=== PATIENT | female | born 1945 | race Caucasian/White ===

== ENCOUNTER 2016-10-25 13:12 | Observation (INO) | payer MEDICARE, OTHER ==
[~2016-10-25 13:12] MED LIST: AMIT25; CALTCHW4 PO; DENO60P SC; FLUT1INH; LORA1TAB PO; METO50CR PO; OMEP40CA2; POTA1TAB17; TIOT18I; VITA400C36; ZETI10TA5 PO
[2016-10-25 13:17] VITALS: BP 105/71; PULSE 86; RESP 14; TEMP 97.8; O2SAT 93
--- NOTE | 2016-10-25 13:25 | PD ---
Physical Exam Time Seen by Provider: 13:22 Narrative 71 y/o female reports that on 11/03 a feeding tube is scheduled to be put in. Her home health speech therapist recommended that she come here now because she seems to be getting dehydrated. C/O fatigue. Recent esophageal dilation bc of esophageal narrowing, not able to orally hydrate well. Vital signs reviewed. Seen at triage desk. Awaiting bed placement. Data Data Last Documented VS Vital Signs Date Time Temp Pulse Resp B/P Pulse Ox O2 Delivery O2 Flow Rate FiO2 10/25/16 13:17 97.8 86 14 105/71 93 MDM Medical Record Reviewed: Yes Supervised Visit with JOSEFA: No Reyes Wolff Oct 25, 2016 13:25
[2016-10-25] MEDS ORDERED: SODIUM CHLORID 0.9% 500 ML INJ 500 ML IV ONE (14:00)
--- NOTE | 2016-10-25 14:05 | PD ---
HPI Chief Complaint: GI Complaint Time Seen by Provider: 13:37 Travel History International Travel<30 days: No Contact w/Intl Traveler<30days: No Traveled to known affect area: No History of Present Illness HPI This is a 71-year-old female who presents to the emergency department with fatigue, generalized weakness and difficulty swallowing. Patient has a history of chronic dysphagia. She was just hospitalized at [facility] and required multiple esophageal dilations. She met with a GI doctor as an outpatient who told her she would be a candidate for a G-tube and the plan was to put a G-tube in on November 03. Her speech therapist came to her house today and was concerned about how dehydrated she looked and was concerned that she was having more trouble swallowing. She thought she should come to the hospital would be evaluated. Her family reports that she's been very fatigued, she lost 5 pounds immediately upon discharge from the hospital. The plan had been to try to increase her oral intake but she's been unable to since being discharged. Her symptoms of been constant, worsening and severe. PFSH Past Medical History Narrative Medical lung cancer htn hld COPD left lung removal chronic dysphagia Anxiety: Yes Heart Rhythm Problems: Yes Cancer: Yes (LUNG) High Cholesterol: Yes Chemotherapy: Yes (1993) Diminished Hearing: No Hypertension: Yes Radiation Therapy: Yes Tetanus Vaccination: Unknown Influenza Vaccination: Yes Past Surgical History Appendectomy: Yes Body Medical Devices: NERVE STIMULATOR WIRES (MRI OK) Hysterectomy: Yes Thoracic Surgery: Yes (LEFT LUNG REMOVAL) Other Surgery: Yes (VOCAL CORD SURGERY) Social History Alcohol Use: No Tobacco Use: No Substance Use: No Allergies-Medications (Allergen,Severity, Reaction): Coded Allergies: Codeine (Verified Allergy, Mild, Headache, 10/25/16) Reported Meds & Prescriptions Reported Meds & Active Scripts Active Reported Amitriptyline (Amitriptyline HCl) 25 Mg Tab 25 Mg PO HS Caltrate 600+D Chew (Calcium Carbonate-Vitamin D Chew) 600-400 Mg-Unit Chew 1 Tab PO DAILY Prolia Inj (Denosumab) 60 Mg/Ml Inj 60 Mg SQ Q180D Zetia (Ezetimibe) 10 Mg Tab 10 Mg PO DAILY Breo Ellipta Inh (Fluticasone/Vilanterol) 100-25 Mcg/Act Inh 1 Puff INH DAILY Use daily at the same time. Lorazepam 1 Mg Tab 1 Mg PO TID Metoprolol Tartrate 25 Mg Tab 25 Mg PO BID Spiriva Handihaler (Tiotropium Inh) 18 Mcg Cap 18 Mcg INH DAILY 1 capsule = 18 mcg Benicar (Olmesartan) 40 Mg Tab 40 Mg PO DAILY Wellbutrin Xl 24 HR (Bupropion HCl) 150 Mg Tab 150 Mg PO DAILY Prednisone 10 Mg Tab 10 Mg PO DAILY Nystatin Liq 100,000 unit/ml Susp 5 Ml SWISH-SPIT QID Review of Systems Except as stated in HPI: all other systems reviewed are Neg Physical Exam Narrative GENERAL:frail, cachectic SKIN: dry with skin tenting HEAD: Atraumatic. Normocephalic. EYES: Pupils equal and round. No injection or drainage. ENT: Dry mucous membranes NECK: Trachea midline. CARDIOVASCULAR: Regular rate and rhythm. No murmur appreciated. RESPIRATORY: Clear to auscultation. Breath sounds equal bilaterally. GASTROINTESTINAL: Abdomen soft, non-tender, nondistended. MUSCULOSKELETAL: No obvious deformities. NEUROLOGICAL: Awake and alert. No obvious cranial nerve deficits. Moving all extremities. PSYCHIATRIC: Appropriate mood and affect; insight and judgment normal. Data Data Last Documented VS Vital Signs Date Time Temp Pulse Resp B/P Pulse Ox O2 Delivery O2 Flow Rate FiO2 10/25/16 13:17 97.8 86 14 105/71 93 Orders Complete Blood Count With Diff (10/25/16 13:47) Comprehensive Metabolic Panel (10/25/16 13:47) ^ Insert Iv (10/25/16 13:47) Sodium Chlorid 0.9% 500 Ml Inj (Ns 500 M (10/25/16 14:00) Urinalysis - C+S If Indicated (10/25/16 15:17) Cath For Specimen (10/25/16 15:17) Consult Gastroenterology (10/25/16 ) Admit Order (Ed Use Only) (10/25/16 15:38) Labs Laboratory Tests Test 10/25/16 14:00 White Blood Count 13.7 TH/MM3 Red Blood Count 4.64 MIL/MM3 Hemoglobin 14.0 GM/DL Hematocrit 43.1 % Mean Corpuscular Volume 93.0 FL Mean Corpuscular Hemoglobin 30.3 PG Mean Corpuscular Hemoglobin 32.6 % Concent Red Cell Distribution Width 13.8 % Platelet Count 227 TH/MM3 Mean Platelet Volume 8.5 FL Neutrophils (%) (Auto) 90.0 % Lymphocytes (%) (Auto) 3.7 % Monocytes (%) (Auto) 5.8 % Eosinophils (%) (Auto) 0.3 % Basophils (%) (Auto) 0.2 % Neutrophils # (Auto) 12.3 TH/MM3 Lymphocytes # (Auto) 0.5 TH/MM3 Monocytes # (Auto) 0.8 TH/MM3 Eosinophils # (Auto) 0.0 TH/MM3 Basophils # (Auto) 0.0 TH/MM3 CBC Comment DIFF FINAL Differential Comment Sodium Level 141 MEQ/L Potassium Level 5.5 MEQ/L Chloride Level 103 MEQ/L Carbon Dioxide Level 34.4 MEQ/L Anion Gap 4 MEQ/L Blood Urea Nitrogen 22 MG/DL Creatinine 0.62 MG/DL Estimat Glomerular Filtration 94 ML/MIN Rate Random Glucose 121 MG/DL Calcium Level 9.6 MG/DL Total Bilirubin 1.0 MG/DL Aspartate Amino Transf 36 U/L (AST/SGOT) Alanine Aminotransferase 46 U/L (ALT/SGPT) Alkaline Phosphatase 67 U/L Total Protein 7.0 GM/DL Albumin 3.1 GM/DL [facility] Medical Decision Making Medical Screen Exam Complete: Yes Emergency Medical Condition: Yes Interpretation(s) Leukocytosis 90% neutrophils Mild hyperkalemia secondary to homolysis Urinalysis with no infection Differential Diagnosis Dehydration, esophageal stricture, vocal cord dysfunction, electrolyte abnormality Narrative Course This is a 71-year-old female who presents the emergency department with increasing generalized weakness. She appears dehydrated on exam. She is placed in a monitor and an IV was established. Labs are reassuring. I think patient requires observation for IV hydration given her clinical appearance and GI consultation. I spoke to Dr. Gibson who was on-call and agrees with plan. Diagnosis Primary Impression: Dehydration Admitting Information Admitting Physician Requests: Observation Sally Thompson MD Oct 25, 2016 14:05
[2016-10-25 14:26] LABS: AUTOMATED NEUTROPHIL # 12.3 TH/MM3 (1.8-7.7); BASOPHIL % 0.2 % (0.0-2.0); EOSINOPHIL % 0.3 % (0.0-4.0); HEMATOCRIT 43.1 % (35.0-46.0); HEMO FLAGS DIFF FINAL; LYMPH % 3.7 % (9.0-44.0); LYMPHOCYTE # 0.5 TH/MM3 (1.0-4.8); MEAN CORPUSCULAR HEMOGLOBIN 30.3 PG (27.0-34.0); MEAN CORPUSCULAR HGB CONC 32.6 % (32.0-36.0); MONO % 5.8 % (0.0-8.0); PLATELET COUNT 227 TH/MM3 (150-450); RED BLOOD COUNT 4.64 MIL/MM3 (4.00-5.30); RED CELL DISTRIBUTION WIDTH 13.8 % (11.6-17.2); WHITE BLOOD COUNT 13.7 TH/MM3 (4.0-11.0)
[2016-10-25 14:46] LABS: ALKALINE PHOSPHATASE 67 U/L (45-117)
[2016-10-25 14:48] LABS: ALT (GPT) 46 U/L (10-53); ANION GAP 4 MEQ/L (5-15); AST (GOT) 36 U/L (15-37); BICARBONATE 34.4 MEQ/L (21.0-32.0); BLOOD UREA NITROGEN 22 MG/DL (7-18); CHLORIDE 103 MEQ/L (98-107); GLOMERULAR FILTRATION RATE 94 ML/MIN (>89); SODIUM (NA) 141 MEQ/L (136-145)
[2016-10-25 14:49] LABS: POTASSIUM 5.5 MEQ/L (3.5-5.1)
[2016-10-25] MEDS ORDERED: NYST1000 SWISH-SPIT (16:28)
[2016-10-25] MEDS ORDERED: PRED10 PO (16:32)
[2016-10-25] MEDS ORDERED: BENI40TA3 PO (16:32)
[2016-10-25] MEDS ORDERED: FLUT1INH INH (16:32)
[2016-10-25] MEDS ORDERED: BUPR150XL PO (16:32)
[2016-10-25] MEDS ORDERED: SPIRCAP INH (16:32)
[2016-10-25] MEDS ORDERED: METO25TA3 PO (16:32)
[2016-10-25] MEDS ORDERED: LORA1TAB12 PO (16:32)
[2016-10-25] MEDS ORDERED: AMIT25TA9 PO (16:35)
[2016-10-25] MEDS ORDERED: CALTCHW5 PO (16:35)
[2016-10-25] MEDS ORDERED: DENO60P SQ (16:35)
[2016-10-25] MEDS ORDERED: ZETI10TA5 PO (16:35)
[2016-10-25 16:42] LABS: BLOOD, URINE NEG (NEG); GLUCOSE,URINE NEG (NEG); KETONE, URINE NEG (NEG); MUCUS URINE FEW /lpf (OCC); NITRITE,URINE NEG (NEG); URINE COLOR YELLOW (YELLW/STRAW)
[2016-10-25 16:44] LABS: COMMENT (UR) CATH-CULT NOT IND; CULTURE IF INDICATED CATH CULTURE NOT IND
[2016-10-25] MEDS ORDERED: ONDANSETRON HCL 4 MG/2 ML VIAL IVP PRN (16:45)
[2016-10-25] MEDS ORDERED: SODIUM CHLORIDE 0.9% FLUSH 10 ML FLUSH IV FLUSH PRN (16:45)
[2016-10-25] MEDS ORDERED: MAGNESIUM HYDROXIDE SUSP 30 ML CUP PO PRN (16:45)
[2016-10-25] MEDS ORDERED: NALOXONE HCL 0.4 MG/ML AMP IV PRN (16:45)
--- NOTE | 2016-10-25 16:46 | PD.CONS ---
HPI History of Present Illness This is a 71 year old [lady] presented to ER today after being advised by PCP and speech therapist at home to come in for worsening dehydration and dysphagia. Pt has hx lung removal for lung ca 20 y ago. Exact etiology unclear , family suspects damage to vocal chords. Pt also has hx surgery to vocal cords to improve speaking voice "geraldine." She has had 3 esophagea dilations in "many years." The dysphagia has worsened in the last couple years and her appetite has declined. Per daughter she stopped eating r/t difficulty swallowing. She has difficulty with solids and liquids. She also chokes when she tries to eat and was recently hospitalized in September for aspiration PNA. She has had speech therapy do swallow eval at home and was told she needs liquids nectar thick and possibly need honey thickened, and pureed foods. She was scheduled by Dr Dangelo to have PEG insertion at [place] in one week. She has lost 34 lbs in the last 3 months and 5 lbs in the last week. No blood thinners, no pacemaker. (Terri Pitts) PFSH Past Medical History hx lung ca HTN hyperlipidemia tachycardia Past Surgical History back fusion removal left lung hysterectomy appendectomy vocal cord surgery (Terri Pitts) Coded Allergies: Codeine (Verified Allergy, Mild, Headache, 10/25/16) Family History [facility] CVA lung ca - sister Social History rare ETOH former smoker - quit 20 y ago no drugs (Terri Pitts) Review of Systems Constitutional: DENIES: Fever Eyes: DENIES: Blurred vision Ears, nose, mouth, throat: DENIES: Hearing loss Respiratory: COMPLAINS OF: Cough, Hemoptysis, Sputum production Cardiovascular: DENIES: Chest pain Gastrointestinal: COMPLAINS OF: Constipation, Vomiting, DENIES: Abdominal pain , Black stools, Bloody stools, Diarrhea, Nausea, Hematemesis Genitourinary: DENIES: Hematuria Musculoskeletal: DENIES: Muscle aches Integumentary: DENIES: Jaundice Hematologic/lymphatic: DENIES: Bruising Neurologic: COMPLAINS OF: Localized weakness Psychiatric: DENIES: Confusion ROS regurgitates food (Terri Pitts) GI Exam Vitals I&O Vital Signs Date Time Temp Pulse Resp B/P Pulse Ox O2 Delivery O2 Flow Rate FiO2 10/25/16 13:17 97.8 86 14 105/71 93 Laboratory Test 10/25/16 14:00 White Blood Count 13.7 TH/MM3 Red Blood Count 4.64 MIL/MM3 Hemoglobin 14.0 GM/DL Hematocrit 43.1 % Mean Corpuscular Volume 93.0 FL Mean Corpuscular Hemoglobin 30.3 PG Mean Corpuscular Hemoglobin 32.6 % Concent Red Cell Distribution Width 13.8 % Platelet Count 227 TH/MM3 Mean Platelet Volume 8.5 FL Neutrophils (%) (Auto) 90.0 % Lymphocytes (%) (Auto) 3.7 % Monocytes (%) (Auto) 5.8 % Eosinophils (%) (Auto) 0.3 % Basophils (%) (Auto) 0.2 % Neutrophils # (Auto) 12.3 TH/MM3 Lymphocytes # (Auto) 0.5 TH/MM3 Monocytes # (Auto) 0.8 TH/MM3 Eosinophils # (Auto) 0.0 TH/MM3 Basophils # (Auto) 0.0 TH/MM3 CBC Comment DIFF FINAL Differential Comment Sodium Level 141 MEQ/L Potassium Level 5.5 MEQ/L Chloride Level 103 MEQ/L Carbon Dioxide Level 34.4 MEQ/L Anion Gap 4 MEQ/L Blood Urea Nitrogen 22 MG/DL Creatinine 0.62 MG/DL Estimat Glomerular Filtration 94 ML/MIN Rate Random Glucose 121 MG/DL Calcium Level 9.6 MG/DL Total Bilirubin 1.0 MG/DL Aspartate Amino Transf 36 U/L (AST/SGOT) Alanine Aminotransferase 46 U/L (ALT/SGPT) Alkaline Phosphatase 67 U/L Total Protein 7.0 GM/DL Albumin 3.1 GM/DL Physical Examination GENERAL: thin HEENT: EOMI; atraumatic; no jaundice. CHEST: rhonchi CARDIAC: RRR ABDOMEN: Soft, nondistended, nontender; no hepatosplenomegaly; bowel sounds hypoactive EXTREMITIES: No clubbing, cyanosis, or edema. SKIN: Normal; no rash; no jaundice. MACHINIST AUTOMOTIVE: No focal deficits; alert and oriented times three. (Terri Pitts ACCOUNT UNDERWRITER) Assessment and Plan Plan ASSESSMENT - dysphagia, weight loss- pt has hx lung ca, vocal cord surgery. Has lost > 30lbs in 3 months and 5 in the last week. worsening dysphagia, scheduled for PEG placement 11/03 but has been having insufficient PO intake and dehydration and referred here by PCP and home health speech therapist, who also recommended nectar and possibly honey thickened liquids. PLAN - EGD/PEG placement tomorrow - obtain consents - honey thickened liquids, puree diet - NPO after midnight - nutrition consult for TF This pt seen by myself and Dr Gibson and this note is written on his behalf ( Terri Pitts) Physician Comments Plan as above, risk, benefits and possible complications discussed and agreed to proceed in AM. (Mihir Gibson MD) Terri Pitts Oct 25, 2016 16:46 Mihir Gibson MD Oct 25, 2016 22:18
[2016-10-25 17:54] VITALS: BP 132/67; PULSE 81; RESP 19; O2SAT 94
--- NOTE | 2016-10-25 18:45 | HHI.HP ---
HPI Service [facility] Hospitalists Primary Care Physician Brandy Newsome MD Admission Diagnosis dehydration, dysphagia Diagnoses: Chief Complaint: Weight loss Difficulty with swallowing Generalized weakness Fatigue Travel History International Travel<30 Days: No Contact w/Intl Traveler <30 Da: No Traveled to Known Affected Are: No History of Present Illness Written by RADHA Lind acting as scribe for Dr. Villarreal on 10/25/16 at 18:24. This is a 71-year-old female with a past medical history significant for previous lung cancer status post left lung resection 20 years ago, hypertension , dyslipidemia, COPD and chronic dysphagia who presented to [place] ED after being advised by her PCP and speech therapist at home to come in to the hospital for worsening dehydration and dysphagia. Patient's previous history of vocal cord surgery. She has has had multiple esophageal dilations. Patient states that her dysphagia has been worsening over many years. She's also noticed a decline in her appetite. She's had an overall weight loss 157 pounds down to 102. However, she has noticed the weight loss has become more rapid and she is now losing a pound a day. She is having increasing difficulty with swallowing both solids and liquids. She frequently chokes when she tries to eat. On 10/09/16, she was admitted at [facility] for aspiration pneumonia and completed a 14 day course of antibiotic therapy with Cefuroxime 250mg BID as well as tapering dose of prednisone the last dose of which she completes today. She was recently evaluated by a GI doctor as an outpatient and was scheduled for a PEG tube insertion on November [address] Gill. However, due to increasing fatigue, weakness and concern for dehydration her therapist felt she was not safe to wait and to come into the hospital. Review of Systems Except as stated in HPI: all other systems reviewed are Neg Past Family Social History Past Medical History Hypertension Lung ca 20 years ago status post left lung resection Dyslipidemia, statin intolerant COPD Anxiety Chronic dysphagia Past Surgical History L5 to S1 back fusion with bone growth stimulator implantation Left lung resection 20yrs ago Vocal cord surgery Hysterectomy Appendectomy Right lung surgery Reported Medications Amitriptyline (Amitriptyline HCl) 25 Mg Tab 25 Mg PO HS Caltrate 600+D Chew (Calcium Carbonate-Vitamin D Chew) 600-400 Mg-Unit Chew 1 Tab PO DAILY Prolia Inj (Denosumab) 60 Mg/Ml Inj 60 Mg SQ Q180D Zetia (Ezetimibe) 10 Mg Tab 10 Mg PO DAILY Breo Ellipta Inh (Fluticasone/Vilanterol) 100-25 Mcg/Act Inh 1 Puff INH DAILY Use daily at the same time. Lorazepam 1 Mg Tab 1 Mg PO TID Metoprolol Tartrate 25 Mg Tab 25 Mg PO BID Spiriva Handihaler (Tiotropium Inh) 18 Mcg Cap 18 Mcg INH DAILY 1 capsule = 18 mcg Benicar (Olmesartan) 40 Mg Tab 40 Mg PO DAILY Wellbutrin Xl 24 HR (Bupropion HCl) 150 Mg Tab 150 Mg PO DAILY Prednisone 10 Mg Tab 10 Mg PO DAILY Nystatin Liq 100,000 unit/ml Susp 5 Ml SWISH-SPIT QID Allergies: Coded Allergies: Codeine (Verified Allergy, Mild, Headache, 10/25/16) Active Ordered Medications Current Medications Medications (Trade) Dose Ordered Sig/[place] Route Start Time Stop Time Status Last Admin (NS Flush) 2 ml UNSCH PRN IV FLUSH 10/25/16 16:45 (NS Flush) 2 ml BID IV FLUSH 10/25/16 21:00 (Tylenol) 650 mg Q4H PRN PO 10/25/16 16:45 (Zofran Inj) 4 mg Q6H PRN IVP 10/25/16 16:45 (Narcan Inj) 0.4 mg UNSCH PRN IV 10/25/16 16:45 (Milk Of Magnesia Liq) 30 ml Q12H PRN PO 10/25/16 16:45 Family History Mother, age 86, renal failure Father, age 51, heart attack Sister, age 78, lung cancer She has a brother who is 82 and healthy Social History Previous tobacco use, quit 20 years ago. Denies any alcohol consumption. Denies illicit drug use. Patient is lives with her . She is the primary caregiver of her who suffered a recent stroke. She has 2 daughters one of which was recently diagnosed with breast cancer. Physical Exam Vital Signs Vital Signs Date Time Temp Pulse Resp B/P Pulse Ox O2 Delivery O2 Flow Rate FiO2 10/25/16 17:54 81 19 132/67 94 Room Air 10/25/16 13:17 97.8 86 14 105/71 93 Physical Exam GENERAL: This is a thin, frail cachectic appearing female, in no apparent distress. SKIN: No rashes, ecchymoses or lesions. Cool and dry. HEAD: Atraumatic. Normocephalic. No temporal or scalp tenderness. EYES: Pupils equal round and reactive. Extraocular motions intact. No scleral icterus. No injection or drainage. ENT: Nose without bleeding, purulent drainage or septal hematoma. Throat without erythema, tonsillar hypertrophy or exudate. Uvula midline. Airway patent. NECK: Trachea midline. No lymphadenopathy. Supple, nontender, no meningeal signs. CARDIOVASCULAR: Regular rate and rhythm without murmurs, gallops, or rubs. RESPIRATORY: Clear to auscultation right lung luna. Absent breath sounds on the left. No wheezes, rales, or rhonchi. GASTROINTESTINAL: Abdomen soft, non-tender, nondistended. No hepato-splenomegaly , or palpable masses. No guarding. MUSCULOSKELETAL: Extremities without clubbing, cyanosis, or edema. No joint tenderness, effusion, or edema noted. No calf tenderness. NEUROLOGICAL: Awake and alert. Able to move all extremities. No focal neurologic findings appreciated. Hypophonic speech. Laboratory Laboratory Tests Test 10/25/16 10/25/16 14:00 16:25 White Blood Count 13.7 Red Blood Count 4.64 Hemoglobin 14.0 Hematocrit 43.1 Mean Corpuscular Volume 93.0 Mean Corpuscular Hemoglobin 30.3 Mean Corpuscular Hemoglobin 32.6 Concent Red Cell Distribution Width 13.8 Platelet Count 227 Mean Platelet Volume 8.5 Neutrophils (%) (Auto) 90.0 Lymphocytes (%) (Auto) 3.7 Monocytes (%) (Auto) 5.8 Eosinophils (%) (Auto) 0.3 Basophils (%) (Auto) 0.2 Neutrophils # (Auto) 12.3 Lymphocytes # (Auto) 0.5 Monocytes # (Auto) 0.8 Eosinophils # (Auto) 0.0 Basophils # (Auto) 0.0 CBC Comment DIFF FINAL Differential Comment Sodium Level 141 Potassium Level 5.5 Chloride Level 103 Carbon Dioxide Level 34.4 Anion Gap 4 Blood Urea Nitrogen 22 Creatinine 0.62 Estimat Glomerular Filtration 94 Rate Random Glucose 121 Calcium Level 9.6 Total Bilirubin 1.0 Aspartate Amino Transf 36 (AST/SGOT) Alanine Aminotransferase 46 (ALT/SGPT) Alkaline Phosphatase 67 Total Protein 7.0 Albumin 3.1 Urine Color YELLOW Urine Turbidity CLEAR Urine pH 7.0 Urine Specific [place] 1.022 Urine Protein TRACE Urine Glucose (UA) NEG Urine Ketones NEG Urine Occult Blood NEG Urine Nitrite NEG Urine Bilirubin NEG Urine Urobilinogen LESS THAN 2.0 Urine Leukocyte Esterase TRACE Urine RBC 2 Urine WBC 1 Urine Mucus FEW Microscopic Urinalysis Comment CATH-CULT NOT IND Result Diagram: 10/25/16 1400 10/25/16 1400 Assessment and Plan Assessment and Plan 71-year-old female with a past medical history significant for previous lung cancer status post left lung resection 20 years ago, hypertension, dyslipidemia , COPD and chronic dysphagia who presents to [facility] ED with complaints of fatigue, generalized weakness, progressive weight loss and difficulty with swallowing. Acute on chronic dysphagia Recent hospitalization for aspiration pneumonia Progressive weight loss Failure to thrive Dehydration GI consult requested and patient has already been evaluated - very much appreciate their assistance. Patient for EGD/PEG placement tomorrow Previously evaluated by speech therapy - Honey thickened liquids, pured diet Nothing by mouth after midnight Consult nutrition for tube feeding following PEG placement Hypertension BP well-controlled at present Resume home antihypertensive Monitor BP and adjust treatment as indicated Leukocytosis Possibly reactive Patient is afebrile AM labs to monitor trend Lung caner 20 years ago status post left lung resection COPD Supplemental oxygen as needed Resume home bronchodilators Plan for home walk test prior to discharge to assess need for home oxygen Maintain O2 sats above 92% Duonebs prn Thrush Nystatin swish and swallow Dyslipidemia, statin intolerant Continue Zetia DVT prophylaxis SCD/CHICO cho Patient is DNR This note was transcribed by leonel Barillas. I, Dr. Peng Villarreal personally performed the history, physical exam, and medical decision making; and confirmed the accuracy of the information in the transcribed note. Authenticated by Dr. Peng Villarreal on 10/25/16 at 18:49. Suzanne Barillas Oct 25, 2016 18:44 Peng Villarreal MD Oct 25, 2016 18:49
[2016-10-25 19:15] VITALS: BP 109/69; PULSE 75; RESP 20; TEMP 97.9; O2SAT 95
[2016-10-25] MEDS: ACETAMINOPHEN 325 MG TAB PO PRN (19:43)
[2016-10-25] MEDS: SODIUM CHLORIDE 0.9% FLUSH 10 ML FLUSH IV FLUSH SCH (19:44)
[2016-10-25] MEDS ORDERED: RESP: ALBUTEROL 2.5 MG/IPRATROPIUM 0.5 MG NEB (PRN) NEB (20:45)
[2016-10-25] MEDS ORDERED: ENALAPRILAT 1.25 MG/ML VIAL IV PUSH PRN (20:45)
[2016-10-25] MEDS: AMITRIPTYLINE HCL 25 MG TAB PO SCH (22:10)
[2016-10-25] MEDS: METOPROLOL TARTRATE 25 MG TAB PO SCH (22:10)
[2016-10-25] MEDS: NYSTATIN SUSP 500,000 U/5 ML CUP SWISH-SWAL SCH (22:10)
[2016-10-26] VITALS (8 sets, daily range): BP systolic 113–145; BP diastolic 55–79; PULSE 65–83; RESP 16–20; TEMP 95.8–98.7; O2SAT 92–98
[2016-10-26 05:12] LABS: AUTOMATED NEUTROPHIL # 7.6 TH/MM3 (1.8-7.7); BASOPHIL # 0.1 TH/MM3 (0-0.2); BASOPHIL % 0.9 % (0.0-2.0); EOSINOPHIL # 0.1 TH/MM3 (0-0.4); EOSINOPHIL % 0.6 % (0.0-4.0); HEMATOCRIT 36.6 % (35.0-46.0); HEMO FLAGS DIFF FINAL; LYMPH % 11.9 % (9.0-44.0); LYMPHOCYTE # 1.2 TH/MM3 (1.0-4.8); MEAN CELL VOLUME 91.7 FL (80.0-100.0); MEAN CORPUSCULAR HEMOGLOBIN 30.2 PG (27.0-34.0); MONO % 11.7 % (0.0-8.0); NEUT % 74.9 % (16.0-70.0); PLATELET COUNT 174 TH/MM3 (150-450); RED BLOOD COUNT 3.99 MIL/MM3 (4.00-5.30); RED CELL DISTRIBUTION WIDTH 13.5 % (11.6-17.2); WHITE BLOOD COUNT 10.1 TH/MM3 (4.0-11.0)
[2016-10-26 05:50] LABS: ALKALINE PHOSPHATASE 55 U/L (45-117); ALT (GPT) 32 U/L (10-53); ANION GAP 6 MEQ/L (5-15); AST (GOT) 16 U/L (15-37); BICARBONATE 31.8 MEQ/L (21.0-32.0); BLOOD UREA NITROGEN 16 MG/DL (7-18); CHLORIDE 105 MEQ/L (98-107); GLOMERULAR FILTRATION RATE 177 ML/MIN (>89); POTASSIUM 3.6 MEQ/L (3.5-5.1); SODIUM (NA) 143 MEQ/L (136-145)
[2016-10-26] MEDS ORDERED: KANGAROO JOEY P1 MIS (08:58)
[2016-10-26] MEDS ORDERED: predniSONE 10 MG TAB PO SCH (09:00)
[2016-10-26] MEDS ORDERED: EZETIMIBE 10 MG TAB PO SCH (09:00)
[2016-10-26] MEDS ORDERED: buPROPion HCL 150 MG EXTENDED RELEASE TAB PO SCH (09:00)
[2016-10-26] MEDS ORDERED: LOSARTAN 50 MG TAB PO SCH (09:00)
--- NOTE | 2016-10-26 09:05 | HHI.FF ---
Face to Face Verification Diagnosis: (1) Malnutrition (2) Dysphagia (3) History of lung cancer (4) COPD (chronic obstructive pulmonary disease) (5) HTN (hypertension) (6) HLD (hyperlipidemia) Physical Therapy Order: Evaluate and Treat, Improve ambulation, Strength and gait training Speech Therapy Order: To Improve: Swallowing Home Health Nursing Order: Medical education Signs/symptoms of disease process Nursing assessment with vital signs Instructions: Assist with tube feedings. I have seen patient Paige Sharp on 10/26/16. My clinical findings support the need for the requested home health care services because: Ltd mobility - disease progression Deconditioned w/ increased weakness Limited ability to care for self I certify that my clinical findings support that this patient is homebound because: Unsteady gait/balance Unsafe to leave home unassisted Unable to use public transportation Leia Amado PA-C Oct 26, 2016 9:05 am
--- NOTE | 2016-10-26 09:50 | HHI.PR ---
Subjective Remarks Follow up for dysphagia, malnutrition. The patient reports continued difficulty swallowing with nonproductive cough. She states she chokes even on her saliva. She is going for EGD with PEG placement today. The patient's daughter is at bedside. Daughter reports the patient has only been getting max 1300calories at home but on most days it's around 900 calories. She states the patient's stomach "fills up quick" and she has to eat very small meals. The patient already has HHC at home and would like to continue this at discharge. Objective Vitals Vital Signs Date Time Temp Pulse Resp B/P Pulse Ox O2 Delivery O2 Flow Rate FiO2 10/26/16 08:45 97.8 76 18 131/79 93 10/26/16 04:09 98.5 66 18 143/65 92 10/26/16 00:55 98.0 65 16 113/69 94 10/25/16 19:15 97.9 75 20 109/69 95 10/25/16 17:54 81 19 132/67 94 Room Air 10/25/16 13:17 97.8 86 14 105/71 93 Result Diagram: 10/26/16 0409 10/26/16 0402 Objective Remarks GENERAL: Thin cachectic pleasant elderly female patient in [facility]. SKIN: Warm and dry. No rash. HEENT: Normocephalic. Atraumatic. Bitemporal wasting noted. Pupils equal and round. Mucous membranes slightly dry. NECK: Supple. Trachea midline. CARDIOVASCULAR: Regular rate and rhythm. S1, S2 noted. 2/6 systolic murmur noted. RESPIRATORY: No accessory muscle use. Clear to auscultation. Breath sounds equal bilaterally. GASTROINTESTINAL: Abdomen soft, non-tender, nondistended. Normoactive bowel sounds x4. MUSCULOSKELETAL: No obvious deformities. Extremities without clubbing, cyanosis , or edema. NEUROLOGICAL: Awake and alert. No obvious cranial nerve deficits. Motor grossly within normal limits. Normal speech. PSYCHIATRIC: Appropriate mood and affect; insight and judgment normal. Procedures 10/26/16 - going for EGD with PEG placement today Medications and IVs Current Medications Medications (Trade) Dose Ordered Sig/Cayetano Route Start Time Stop Time Status Last Admin (NS Flush) 2 ml UNSCH PRN IV FLUSH 10/25/16 16:45 (NS Flush) 2 ml BID IV FLUSH 10/25/16 21:00 10/25/16 19:44 (Tylenol) 650 mg Q4H PRN PO 10/25/16 16:45 10/25/16 19:43 (Zofran Inj) 4 mg Q6H PRN IVP 10/25/16 16:45 (Narcan Inj) 0.4 mg UNSCH PRN IV 10/25/16 16:45 (Milk Of Magnesia Liq) 30 ml Q12H PRN PO 10/25/16 16:45 (Mycostatin Liq) 5 ml QID SWISH-SWAL 10/25/16 21:00 10/25/16 22:10 (Vasotec Inj) 1.25 mg Q6H PRN IV PUSH 10/25/16 20:45 (Elavil) 25 mg HS PO 10/25/16 21:00 10/25/16 22:10 (Zetia) 10 mg DAILY PO 10/26/16 09:00 (Breo Ellipta 100-25 Inh) 1 puff DAILY INH 10/26/16 09:00 (Ativan) 1 mg TID PO 10/26/16 09:00 (Lopressor) 25 mg BID PO 10/25/16 21:00 10/25/16 22:10 (Deltasone) 10 mg DAILY PO 10/26/16 09:00 (Spiriva Inh) 18 mcg DAILY INH 10/26/16 09:00 (Cozaar) 100 mg DAILY PO 10/26/16 09:00 (Wellbutrin Sr) 150 mg DAILY PO 10/26/16 09:00 A/P Problem List: (1) Malnutrition ICD Code: E46 Status: Acute (2) Dysphagia ICD Code: R13.10 Status: Acute (3) Dehydration ICD Code: E86.0 Status: Acute Assessment and Plan 71-year-old female with a past medical history significant for previous lung cancer status post left lung resection 20 years ago, hypertension, dyslipidemia , COPD and chronic dysphagia who presents to [facility] ED with complaints of fatigue, generalized weakness, progressive weight loss and difficulty with swallowing. Acute on chronic dysphagia, Weight loss, Cachexia, Failure to thrive, Dehydration, Severe Protein Calorie Malnutrition -GI consulted, plan for EGD/PEG placement today 10/26 -Previously evaluated by at [facility], recommended Honey thickened liquids , pured diet -Keep NPO for now. -Give IVF while NPO -Consult nutrition for tube feeding recommendations following PEG placement -Case management consulted to arrange HHC and tube feeds at home Hypertension: BP well-controlled at present -Resume home antihypertensives with ARB, metoprolol -Monitor BP and adjust treatment as indicated Leukocytosis: Suspect reactive, patient is afebrile -Given IVF -repeat CBC with WBC 10.1, resolved. Lung cancer 20 years ago status post left lung resection, COPD -Continue Supplemental oxygen as needed -Resume home bronchodilators -Plan for home walk test prior to discharge to assess need for home oxygen -Maintain O2 sats above 92% -Duonebs prn Thrush-Continue Nystatin swish and swallow Dyslipidemia, statin intolerant-Continue Zetia DVT prophylaxis: SCD/CHICO cho Patient is undecided on her code status, she plans to discuss with her 2 daughters. She has a living will that reportedly states "no extraordinary measures" however patient believes she would agree to CPR/ACLS but not intubation. Discussed will leave as full code for now until she has discussed with family, patient and daughter agree. -1010hrs: patient's other family members arrived, the patient and family have decided the patient would like to be DNR, will change code status in EMR Leia Amado PA-C Oct 26, 2016 09:50
[2016-10-26] MEDS ORDERED: OXYGENDME NAS.CANULA (10:35)
[2016-10-26] MEDS ORDERED: ceFAZolin INJ 1,000 MG VIAL IV ONE (11:04)
[2016-10-26] MEDS ORDERED: PROPOFOL 200 MG/20 ML AMP IV PUSH ONE (11:19)
--- NOTE | 2016-10-26 11:32 | GIPROC ---
[facility] [address] [facility]. [facility], [address] EGD WITH PEG PROCEDURE REPORT EXAM DATE: 10/26/2016 PATIENT NAME: Paige Sharp MR#: [id number] BIRTHDATE: 1945 ATTENDING: Mihir Gibson MD ORDER #: [id number] MANAGER ENGAGEMENT: Indu Guy and Andrew Drummond STATUS: inpatient INDICATIONS: The patient is a 71 yr old female here for an EGD with PEG due to placement of PEG PROCEDURE PERFORMED: EGD with PEG placement MEDICATIONS: Per Anesthesia. TOPICAL ANESTHETIC: none CONSENT: The patient understands the risks and benefits of the procedure and understands that these risks include, but are not limited to: sedation, allergic reaction, infection, perforation and/or bleeding. Alternative means of evaluation and treatment include, among others: physical exam, x-rays, and/or surgical intervention. The patient elects to proceed with this endoscopic procedure. medical equipment was checked for proper function. Hand hygiene and appropriate measures for infection prevention was taken. After the risks, benefits and alternatives of the procedure were thoroughly explained, Informed consent was verified, confirmed and timeout was successfully executed by the treatment team. The patient was anesthetized with topical anesthesia and the Pentax [id number] endoscope was introduced through the mouth and advanced to the second portion of the duodenum. The instrument was slowly withdrawn as the mucosa was fully examined. The upper, middle, and distal third of the esophagus were carefully inspected and no abnormalities were noted. The z-line was well seen at the GEJ. The endoscope was pushed into the fundus which was normal including a retroflexed view. The antrum, first and second part of the duodenum were unremarkable. The stomach was then inflated with air, and by a combination of transillumination and manual palpation, the site for the gastrostomy tube placement was selected and marked on the anterior abdominal wall. The skin of the anterior abdomen was surgically prepped and draped with sterile towels. Utilizing strict sterile technique, the selected site was then anesthetized with 1% xylocaine by injection into the skin and subcutaneous tissue. A 1 cm incision was made through the skin and subcutaneous tissue, and the needle/cannula assembly was then passed through the abdominal wall and through the anterior wall of the stomach, maintaining visualization with the endoscope. A snare device previously placed through the instrument channel was then opened and placed around the cannula, the needle was removed, and the insertion wire was passed through the cannula and into the stomach lumen. The snare was then loosened from the cannula, and repositioned to snare the insertion wire. The snare was then pulled up to the endoscope distal tip, and the scope was then withdrawn bringing with it the snare and insertion wire. The insertion wire was then released from the snare, and then loop-attached to the Ross 20 Fr gastrostomy tube. Using the "pull technique", the G-tube was then pulled into place by traction on the insertion wire at the abdominal wall end. The G-tube insertion site was then cleansed once again, and the external bolster was placed over the tube to secure it to the abdominal wall. A sterile dressing was then applied, and the procedure terminated. no abnormalities The gastroscope was then slowly withdrawn and removed. ADVERSE EVENT: There were no complications. IMPRESSIONS: 1. The upper, middle, and distal third of the esophagus were carefully inspected and no abnormalities were noted. The z-line was well seen at the GEJ. The endoscope was pushed into the fundus which was normal including a retroflexed view. The antrum, first and second part of the duodenum were unremarkable. 2. Possible extrinsic compression noted at the GE junction but no mucosal invasion. RECOMMENDATIONS: PEG recomendations: 1- NPO for 6 hours except for meds 2- Flush PEG tube every 6 hours with water and after each PEG feeding 3- May resume regular diet in the morning 4- May use Ensure or Boost etc. for PEG tube feeding REPEAT EXAM: procedure as needed Mihir Gibson MD eSigned: Mihir Gibson MD 10/26/2016 11:32 AM cc: PATIENT NAME: Paige Sharp MR#: [id number]
[2016-10-26] MEDS ORDERED: MORPHINE SULFATE 4 MG/ML INJ IV ONE (12:15)
[2016-10-26] MEDS: D5-1/2 NS + KCL 20 MEQ INJ 1,000 ML IV SCH ×2 (13:39→22:28)
[2016-10-26] MEDS: TIOTROPIUM BROMIDE 18 MCG INH INH SCH (14:00)
[2016-10-26] MEDS: FLUTICASONE 100 MCG/VILANTEROL 25 MCG INHALER INH SCH (14:00)
[2016-10-26] MEDS: LORazepam 1 MG TAB PO SCH ×3 (14:01→18:52)
[2016-10-26] MEDS: buPROPion HCL 150 MG SUSTAINED RELEASE TAB PO SCH (14:04)
[2016-10-26] MEDS: NYSTATIN SUSP 500,000 U/5 ML CUP SWISH-SWAL SCH ×4 (14:05→22:26)
[2016-10-26] MEDS: METOPROLOL TARTRATE 25 MG TAB PO SCH ×2 (14:10→22:15)
[2016-10-26] MEDS: SODIUM CHLORIDE 0.9% FLUSH 10 ML FLUSH IV FLUSH SCH ×2 (14:11→21:00)
[2016-10-26] MEDS: ACETAMINOPHEN 325 MG TAB PO PRN (16:14)
--- NOTE | 2016-10-26 21:22 | EKG ---
Date Performed: 10/26/2016 Time Performed: 09:07:35 PTAGE: 71 years EKG: Sinus rhythm NORMAL ECG NO PREVIOUS TRACING DOCTOR: Melvi Disla Interpretating Date/Time 10/26/2016 21:15:57
[2016-10-26] MEDS: AMITRIPTYLINE HCL 25 MG TAB PO SCH (22:26)
[2016-10-27 04:10] VITALS: BP 113/54; RESP 17; TEMP 96.5; O2SAT 96
[2016-10-27] MEDS ORDERED: MORPHINE SULFATE 4 MG/ML INJ IV PUSH ONE (06:15)
[2016-10-27 07:25] VITALS: O2SAT 98
[2016-10-27 08:03] VITALS: BP 111/58; PULSE 90; RESP 15; TEMP 98.1; O2SAT 98
[2016-10-27] MEDS ORDERED: ACETAMINOPHEN/HYDROcodone 325 MG/5 MG TAB PEG PRN (08:45)
--- NOTE | 2016-10-27 08:54 | HHI.PR ---
Subjective Remarks Follow-up for dysphagia and malnutrition. The patient complains of pain with PEG tube insertion. She states that she is afraid to move because of the pain from the PEG tube site. She did receive morphine and states that it helped a lot. Otherwise she is been tolerating tube feeding. She denies any nausea or vomiting. Last BM 2 days ago. She would like to go home today if the pain is better controlled. She declines rehabilitation placement, states her daughter is visiting for a while and she has [facility] at home to assist her. Objective Vitals Vital Signs Date Time Temp Pulse Resp B/P Pulse Ox O2 Delivery O2 Flow Rate FiO2 10/27/16 08:03 98.1 90 15 111/58 98 10/27/16 07:25 98 Nasal Cannula 2.00 10/27/16 07:00 16 10/27/16 04:10 96.5 17 113/54 96 10/26/16 23:50 98.5 77 16 113/55 96 10/26/16 20:22 97 Nasal Cannula 2.00 10/26/16 19:59 95.8 80 16 113/58 97 10/26/16 15:13 97.9 83 20 126/59 97 10/26/16 12:30 92 17 141/67 100 10/26/16 12:00 94 18 129/66 100 10/26/16 11:40 94 18 125/62 95 10/26/16 11:25 97.6 94 18 116/63 93 10/26/16 10:32 98.7 83 18 145/70 98 I/O 10/26/16 10/26/16 10/26/16 10/27/16 10/27/16 10/27/16 07:00 15:00 23:00 07:00 15:00 23:00 Intake Total 368 ml Balance 368 ml Intake IV Total 168 ml Other 200 ml # Voids 1 1 Result Diagram: 10/26/16 0409 10/26/16 0402 Objective Remarks GENERAL: Well-developed fair-nourished. In no acute distress. SKIN: Warm and dry. No lesions noted. HEENT: Normocephalic. Pupils equal and round. Mucous membranes pink and moist. White patches of the angles of the mouth. CARDIOVASCULAR: Regular rate and rhythm. No murmur appreciated. RESPIRATORY: No accessory muscle use. Clear to auscultation. Breath sounds equal bilaterally. GASTROINTESTINAL: Abdomen soft, non-tender, nondistended. Bowel sounds x4. PEG tube in place in the epigastrium with minimal surrounding inflammation and no drainage. MUSCULOSKELETAL: No obvious deformities. No clubbing or cyanosis. No edema. NEUROLOGICAL: Awake and alert. No focal neurological deficits. Moves upper and lower extremities spontaneously. Normal speech. PSYCHIATRIC: Appropriate mood and affect; insight and judgment normal. Procedures 10/26/16 - going for EGD with PEG placement today A/P Problem List: (1) Malnutrition ICD Code: E46 Status: Acute (2) Dysphagia ICD Code: R13.10 Status: Acute (3) Dehydration ICD Code: E86.0 Status: Acute Assessment and Plan 71-year-old female with a past medical history significant for previous lung cancer status post left lung resection 20 years ago, hypertension, dyslipidemia , COPD and chronic dysphagia who presents to [facility] ED with complaints of fatigue, generalized weakness, progressive weight loss and difficulty with swallowing. Acute on chronic dysphagia, Weight loss, Cachexia, Failure to thrive, Dehydration, Severe Protein Calorie Malnutrition -GI consulted, performed EGD/PEG placement 10/26 -Previously evaluated [facility], recommended Honey thickened liquids , pured diet -Started on tube feedings, increase to goal. Resume previous diet per recommendations. -IVF -Appreciate dietitian consult and recommendations -Case management consulted to arrange HHC and tube feeds at home -Pain control with a bowel regimen for PEG tube site pain Hypertension: Controlled. -Continue home antihypertensives with ARB, metoprolol -Monitor BP and adjust treatment as indicated Leukocytosis: Suspect reactive, patient is afebrile -Given IVF, repeat CBC with WBC 10.1, resolved. Lung cancer 20 years ago status post left lung resection, COPD -Continue Supplemental oxygen as needed -Continue home bronchodilators -Performed home oxygen walk test, will need home O2, case management consulted -Maintain O2 sats above 92% -Duonebs prn Thrush-Continue Nystatin swish and swallow Dyslipidemia, statin intolerant-Continue Zetia DVT prophylaxis: SCD/CHICO hose Discharge Planning Likely discharge home with HHC today if tolerating tube feeding. Jd Alfredo Oct 27, 2016 08:54
[2016-10-27] MEDS: NYSTATIN SUSP 500,000 U/5 ML CUP SWISH-SWAL SCH (09:00)
[2016-10-27] MEDS ORDERED: POLYETHYLENE GLYCOL 17 GM PKG PEG ONE (09:00)
[2016-10-27] MEDS: LORazepam 1 MG TAB PEG SCH ×2 (09:30→12:10)
[2016-10-27] MEDS ORDERED: predniSONE 10 MG TAB PEG SCH (09:30)
[2016-10-27] MEDS ORDERED: EZETIMIBE 10 MG TAB PEG SCH (09:30)
[2016-10-27] MEDS ORDERED: METOPROLOL TARTRATE 25 MG TAB PEG SCH (09:30)
[2016-10-27] MEDS ORDERED: LOSARTAN 50 MG TAB PEG SCH (09:30)
[2016-10-27] MEDS: TIOTROPIUM BROMIDE 18 MCG INH INH SCH (09:31)
[2016-10-27] MEDS: FLUTICASONE 100 MCG/VILANTEROL 25 MCG INHALER INH SCH (09:31)
[2016-10-27] MEDS: buPROPion HCL 150 MG SUSTAINED RELEASE TAB PO SCH (09:31)
[2016-10-27] MEDS: D5-1/2 NS + KCL 20 MEQ INJ 1,000 ML IV SCH (09:32)
[2016-10-27] MEDS: SODIUM CHLORIDE 0.9% FLUSH 10 ML FLUSH IV FLUSH SCH (09:32)
[2016-10-27 10:55] LABS: BICARBONATE 35.6 MEQ/L (21.0-32.0); MAGNESIUM 2.1 MG/DL (1.5-2.5); POTASSIUM 3.9 MEQ/L (3.5-5.1)
[2016-10-27 11:41] VITALS: BP 107/53; PULSE 76; RESP 20; TEMP 99; O2SAT 97
--- NOTE | 2016-10-27 12:00 | HHI.GIFU ---
Subjective Remarks Pt resting in bed, about to do bedside swallow eval. She c/o PEG site pain, says it hurts if she moves. No n/v. (Terri iPtts) Objective Vitals I&O Vital Signs Date Time Temp Pulse Resp B/P Pulse Ox O2 Delivery O2 Flow Rate FiO2 10/27/16 11:41 99.0 76 20 107/53 97 10/27/16 10:30 20 10/27/16 08:03 98.1 90 15 111/58 98 10/27/16 07:25 98 Nasal Cannula 2.00 10/27/16 07:15 98 Nasal Cannula 2.00 10/27/16 07:00 16 10/27/16 04:10 96.5 17 113/54 96 10/26/16 23:50 98.5 77 16 113/55 96 10/26/16 20:22 97 Nasal Cannula 2.00 10/26/16 19:59 95.8 80 16 113/58 97 10/26/16 15:13 97.9 83 20 126/59 97 10/26/16 12:30 92 17 141/67 100 10/26/16 12:00 94 18 129/66 100 I/O 10/26/16 10/26/16 10/26/16 10/27/16 10/27/16 10/27/16 07:00 15:00 23:00 07:00 15:00 23:00 Intake Total 368 ml Balance 368 ml Intake IV Total 168 ml Other 200 ml # Voids 1 1 Laboratory Laboratory Tests Test 10/27/16 10:25 Sodium Level 139 Potassium Level 3.9 Chloride Level 99 Carbon Dioxide Level 35.6 Anion Gap 4 Blood Urea Nitrogen 8 Creatinine 0.53 Estimat Glomerular Filtration 113 Rate Random Glucose 188 Calcium Level 8.6 Phosphorus Level 1.7 Magnesium Level 2.1 Physical Exam HEENT: EOMI; normocephalic; atraumatic; no jaundice. CHEST: CTA CARDIAC: RRR, +murmur ABDOMEN: Soft, nondistended, no hepatosplenomegaly; bowel sounds are present in all four quadrants.TTP PEG. PEG site clean, free of redness, swelling, drainage EXTREMITIES: No clubbing, cyanosis, or edema. SKIN: Normal; no rash; no jaundice. CASE MANAGERS: No focal deficits; alert and oriented times three. (Terri Pitts) Assessment and Plan Plan ASSESSMENT - dysphagia, weight loss- pt has hx lung ca, vocal cord surgery. Has lost > 30lbs in 3 months and 5 in the last week. worsening dysphagia, scheduled for PEG placement 11/03 but has been having insufficient PO intake and dehydration and referred here by PCP and home health speech therapist, who also recommended nectar and possibly honey thickened liquids. PLAN - PO diet per speech therapy - TF per nutrition - pain meds PRN PEG site discomfort - okay to d/c home with C if pain under control and continues to tolerate TF This pt seen by myself and Dr Gibson and this note is written on his behalf ( Terri Pitts) Physician Comments Seen and examined, pain improved significantly . stable from GI point of view. ( Mihir Gibson MD) Terri Pitts Oct 27, 2016 12:00 Mihir Gibson MD Oct 27, 2016 14:10
[2016-10-27] MEDS ORDERED: NORC5TAB PO (12:03)
[2016-10-27] MEDS ORDERED: JEVILIQ12 PEG (12:52)
[2016-10-27] MEDS ORDERED: AMITRIPTYLINE HCL 25 MG TAB PEG SCH (21:00)
== END 2016-10-27 14:17 | disposition home or self-care (01) ==
LOC: NEPD 13:12 → NEDA 15:39 → NEPGCP 18:33
PROVIDERS: ADMIT Hospitalist; ATTEND Hospitalist
DX: R13.10 Dysphagia, unspecified (principal); R53.1 Weakness; R62.7 Adult failure to thrive; E86.0 Dehydration; I10 Essential (primary) hypertension; J44.9 Chronic obstructive pulmonary disease, unspecified; E78.5 Hyperlipidemia, unspecified; E43 Unspecified severe protein-calorie malnutrition; F41.9 Anxiety disorder, unspecified; B37.9 Candidiasis, unspecified; E78.00 Pure hypercholesterolemia, unspecified; D72.829 Elevated white blood cell count, unspecified; Z92.21 Personal history of antineoplastic chemotherapy; Z92.3 Personal history of irradiation; Z85.118 Personal history of other malignant neoplasm of bronchus and lung; Z90.2 Acquired absence of lung [part of]; Z88.5 Allergy status to narcotic agent; Z66 Do not resuscitate; Z87.891 Personal history of nicotine dependence
CPT/HCPCS: 43246; 80048; 80053; 81001; 83735; 84100; 84132; 85025; 92610; 93005; 94620; 96361; 96374; 96375; 99285; G0378; G8996; G8997; G8998; J0690; J2270; J3010; J3480; J7040; J7512

== ENCOUNTER 2017-04-29 17:21 | Observation (INO) | payer MEDICARE, OTHER ==
[~2017-04-29] VITALS: Ht 177.8 cm; Wt 52.5 kg
[~2017-04-29 17:21] MED LIST changes: -AMIT25; +AMIT25TA9 PO; +BENI40TA29 PO; +BUPR150XL PO; -CALTCHW4 PO; +CALTCHW5 PO; -DENO60P SC; +DENO60P SQ; +EZET10 PO; -FLUT1INH; +FLUT1INH INH; +JEVILIQ12 PEG; +KANGAROO JOEY P1 MIS; -LORA1TAB PO; +LORA1TAB12 PO; +METO25TA3 PO; -METO50CR PO; +NORC5TAB PO; +NYST1000 SWISH-SPIT; -OMEP40CA2; +OXYGENDME NAS.CANULA; -POTA1TAB17; +PRED10 PO; +SPIRCAP INH; -TIOT18I; -VITA400C36; -ZETI10TA5 PO
[2017-04-29 17:22] VITALS: BP 145/64; PULSE 71; RESP 16; TEMP 98.4; O2SAT 96
[2017-04-29] MEDS ORDERED: CLON1TAB PO (18:46)
[2017-04-29] MEDS ORDERED: FURO20TA PO (18:46)
--- NOTE | 2017-04-29 19:36 | PD ---
HPI . PEG problem Chief Complaint: Air Turning Machine Feeder Problem Time Seen by Provider: 19:02 Travel History International Travel<30 days: No Contact w/Intl Traveler<30days: No Traveled to known affect area: No History of Present Illness HPI This patient presents requesting placement of her PEG tube. The PEG tube has not come out. It has a leak where the feedings go into the tube. PEG tube was placed on October 26 for dysphagia associated with profound malnutrition. In addition, she is complaining with some irritation around the PEG tube. She believes that there has been irritation there for about 2 weeks. She states that she cannot see the site herself but has felt that it was irritated for about 2 weeks. PFSH Past Medical History Blood Disorders: No Anxiety: Yes Depression: No Heart Rhythm Problems: Yes Cancer: Yes (LUNG) Cardiovascular Problems: Yes High Cholesterol: Yes Chemotherapy: Yes (1993) Chest Pain: No Congestive Heart Failure: No Diminished Hearing: No Endocrine: No Genitourinary: No Hypertension: Yes Immune Disorder: No Musculoskeletal: No Neurologic: No Psychiatric: Yes Reproductive: No Respiratory: No Radiation Therapy: Yes Tetanus Vaccination: > 5 Years Influenza Vaccination: Yes Past Surgical History Appendectomy: Yes Body Medical Devices: NERVE STIMULATOR WIRES (MRI OK) Cholecystectomy: Yes Hysterectomy: Yes Thoracic Surgery: Yes (LEFT LUNG REMOVAL) Other Surgery: Yes (VOCAL CORD SURGERY) Social History Alcohol Use: No Tobacco Use: No (quit ) Substance Use: No Allergies-Medications (Allergen,Severity, Reaction): Coded Allergies: codeine (Verified Allergy, Mild, rash, 04/29/17) Reported Meds & Prescriptions Reported Meds & Active Scripts Active Oxygen (O2) Device 2 Liter FLAKITO.CANULA CONTINUOUS Oxygen Concentrator Portable Gaseous 2 L/min via Nasal Canula Continuous For 99 months [facility] Feeding Tube Pump Set 1 Mis Mis 1 Ea .ROUTE DIRECTED Reported Clonazepam 1 Mg Tab 1 Mg PO HS Furosemide 20 Mg Tab 20 Mg PO DAILY Zetia (Ezetimibe) 10 Mg Tab 10 Mg PO DAILY Lorazepam 1 Mg Tab 1 Mg PO TID Metoprolol Tartrate 25 Mg Tab 25 Mg PO BID Spiriva Handihaler (Tiotropium Inh) 18 Mcg Cap 18 Mcg INH DAILY 1 capsule = 18 mcg Wellbutrin Xl 24 HR (Bupropion HCl) 150 Mg Tab 150 Mg PO DAILY Review of Systems Except as stated in HPI: all other systems reviewed are Neg General / Constitutional: No: Fever, Chills Gastrointestinal: Positive: Other (dysphagia requiring PEG tube for nutrition) Skin: Positive Other (irritation at PEG tube insertion site) Physical Exam Narrative GENERAL: Awake and alert and in no acute distress. SKIN: Warm and dry. She has some erythema around the PEG tube insertion site. No foul drainage. HEAD: Normocephalic/atraumatic. EYES: Pupils are equal. Extraocular movements are intact. NECK: Normal range of motion. CARDIOVASCULAR: Regular rate and rhythm. RESPIRATORY: Nonlabored respirations. ABDOMEN: PEG tube is in place. MUSCULOSKELETAL: Atraumatic. NEUROLOGICAL: Nonfocal. PSYCHIATRIC: Appropriate mood and affect. Data Data Last Documented VS Vital Signs Date Time Temp Pulse Resp B/P (MAP) Pulse Ox O2 Delivery O2 Flow Rate FiO2 04/29/17 18:28 16 98 Room Air 04/29/17 17:22 98.4 71 145/64 (91) Orders Orders Lidocaine 2% Jelly (Xylocaine 2% Jelly) (04/29/17 20:00) Lorazepam Inj (Ativan Inj) (04/29/17 20:45) Lidocaine 1% Inj (Xylocaine 1% Inj) (04/29/17 20:45) Admit Order (Ed Use Only) (04/29/17 ) Vital Signs (Adult) Q4H (04/29/17 21:58) Diet Npo (04/29/17 Dinner) Activity Oob With Assistance (04/29/17 21:58) Notify Dr: Other (04/29/17 21:58) Invasive Rad Dept Consult (04/29/17 ) MDM Medical Decision Making Medical Screen Exam Complete: Yes Emergency Medical Condition: Yes Medical Record Reviewed: Yes (patient has a history of dysphagia and a PEG tube for nutrition. PEG was placed on 10/26/16. She also has a history of lung cancer and hypertension.) Differential Diagnosis My differential diagnosis of feeding tube dysfunction includes but is not limited to inadvertent removal of the tube, ruptured balloon, cracked/split tube Narrative Course Patient presents with a split in her G-tube. I have attempted to remove this G-tube without success. I do not know whether the problem is that the balloon is deflated or if the G-tube is adhered to her subcutaneous tissue. Nonetheless, the patient will be admitted overnight and the G-tube will be changed by IR in the morning. Diagnosis Primary Impression: PEG tube malfunction Admitting Information Admitting Physician Requests: Observation Patient Instructions: General Instructions, How to Use and Care for Your PEG Tube (DC) Additional Instructions: Use Desitin around PEG tube. Be sure to keep all gastric juices off the skin. See your doctor for recheck of the area (or your home health nurse) next week. Condition: Stable Ida Prieto MD Apr 29, 2017 19:36
[2017-04-29] MEDS ORDERED: LIDOCAINE 2% JELLY 30 ML TUBE TOPICAL ONE (20:00)
[2017-04-29] MEDS ORDERED: LIDOCAINE HCL 1% 30 ML VIAL INFIL ONE (20:45)
[2017-04-29] MEDS ORDERED: LORazepam 2 MG/ML VIAL IM ONE (20:45)
[2017-04-29] MEDS ORDERED: IOHEXOL 350 MG/ML 50 ML BTL (for RAD DIAG) G-TUBE ONE (22:03)
[2017-04-29] MEDS ORDERED: LORazepam 2 MG/ML VIAL IV PUSH ONE (22:03)
[2017-04-29] MEDS ORDERED: SODIUM CHLORIDE 0.9% FLUSH 10 ML FLUSH IV FLUSH PRN (22:15)
[2017-04-29] MEDS ORDERED: ONDANSETRON HCL 4 MG/2 ML VIAL IVP PRN (22:15)
[2017-04-29] MEDS ORDERED: SENNOSIDES 8.6 MG TAB PO PRN (22:15)
[2017-04-29] MEDS ORDERED: ACETAMINOPHEN 325 MG TAB PO PRN (22:15)
[2017-04-29] MEDS ORDERED: NALOXONE HCL 0.4 MG/ML AMP IV PUSH PRN (22:15)
[2017-04-29] MEDS ORDERED: BISACODYL 10 MG SUPP RECTAL PRN (22:15)
[2017-04-29] MEDS ORDERED: MAGNESIUM HYDROXIDE SUSP 30 ML CUP PO PRN (22:15)
[2017-04-29] MEDS ORDERED: LACTULOSE SYRUP 20 GM/30 ML CUP PO PRN (22:15)
[2017-04-29] MEDS ORDERED: SODIUM CHLOR 0.9% 1000 ML INJ 1,000 ML IV SCH (23:00)
[2017-04-30 00:18] VITALS: BP 165/73; PULSE 66; RESP 18; TEMP 98; O2SAT 96
[2017-04-30 00:26] VITALS: PULSE 67; O2SAT 97
[2017-04-30 02:46] VITALS: BP 137/63
[2017-04-30 04:49] VITALS: BP 147/68; PULSE 70; RESP 18; TEMP 97.5; O2SAT 97
[2017-04-30] MEDS ORDERED: LORazepam 2 MG/ML VIAL IV PUSH ONE (05:00)
--- NOTE | 2017-04-30 05:16 | HHI.HP ---
[facility] Service [facility] Primary Care Physician Brandy Newsome MD Admission Diagnosis PEG tube dysfuntion Diagnoses: Travel History International Travel<30 Days: No Contact w/Intl Traveler <30 Da: No Traveled to Known Affected Are: No History of Present Illness 71-year-old female with past medical history significant for lung cancer, hypertension, hyperlipidemia, COPD and chronic dysphasia with G-tube presents to the emergency department for exchange of her PEG tube. The patient reports that the distal end of the tube that connects to the feeds is cracked resulting in leakage. The patient had the PEG tube placed in October of this year for dysphagia and severe malnutrition. She is currently working with speech therapy and is able to take small bites of pured food and sips of some thickened liquids. She receives all of her medications via G-tube. Exchange was attempted in the emergency department, however the physician was unable to remove the patient's current PEG. She will be seen by interventional radiology for PEG tube exchange later today. Review of Systems Denies fever or chills Denies blurry vision, otorrhea, rhinorrhea Denies sore throat and cough No chest pain, palpitations, shortness of breath No abdominal pain Denies constipation/diarrhea/nausea/vomiting Denies muscle pain/weakness No rashes Past Family Social History Past Medical History Lung cancer, status post left lung resection in 1995. Status post chemotherapy. Patient reports a new spot was found on her right lung and she is going to undergo radiation therapy. Hypertension Hyperlipidemia COPD Anxiety Past Surgical History Left lung resection 1995 Hysterectomy Discectomy Fusion Right hip repair Appendectomy Tonsillectomy Cholecystectomy Reported Medications Reported Meds & Active Scripts Active Oxygen (O2) Device 2 Liter FLAKITO.CANULA CONTINUOUS Oxygen Concentrator Portable Gaseous 2 L/min via Nasal Canula Continuous For 99 months [facility] Feeding Tube Pump Set 1 Mis Mis 1 Ea .ROUTE DIRECTED Reported Clonazepam 1 Mg Tab 1 Mg PO HS Furosemide 20 Mg Tab 20 Mg PO DAILY Zetia (Ezetimibe) 10 Mg Tab 10 Mg PO DAILY Lorazepam 1 Mg Tab 1 Mg PO TID Metoprolol Tartrate 25 Mg Tab 25 Mg PO BID Spiriva Handihaler (Tiotropium Inh) 18 Mcg Cap 18 Mcg INH DAILY 1 capsule = 18 mcg Wellbutrin Xl 24 HR (Bupropion HCl) 150 Mg Tab 150 Mg PO DAILY Allergies: Coded Allergies: codeine (Verified Allergy, Mild, rash, 04/29/17) levofloxacin (Verified Adverse Reaction, Severe, Hallucinations, 04/29/17) Family History Father with NM. Social History Quit tobacco in 1995. Rare alcohol. Physical Exam Vital Signs Vital Signs Date Time Temp Pulse Resp B/P (MAP) Pulse Ox O2 Delivery O2 Flow Rate FiO2 04/30/17 04:49 97.5 70 18 147/68 (94) 97 04/30/17 02:46 137/63 (87) 04/30/17 00:26 67 97 04/30/17 00:18 98.0 66 18 165/73 (103) 96 04/29/17 22:42 04/29/17 18:28 16 98 Room Air 04/29/17 17:22 98.4 71 16 145/64 (91) 96 Room Air Physical Exam GENERAL: Cachectic, female lying in bed SKIN: No rashes, ecchymoses or lesions. Cool and dry. HEAD: Atraumatic. Normocephalic. No temporal or scalp tenderness. EYES: Pupils equal round and reactive. Extraocular motions intact. No scleral icterus. No injection or drainage. ENT: Nose without bleeding, purulent drainage or septal hematoma. Throat without erythema, tonsillar hypertrophy or exudate. Uvula midline. Airway patent. NECK: Trachea midline. No JVD or lymphadenopathy. Supple, nontender, no meningeal signs. CARDIOVASCULAR: Regular rate and rhythm. 4/6 MERLINE. RESPIRATORY: Clear to auscultation. Breath sounds equal bilaterally. No wheezes , rales, or rhonchi. GASTROINTESTINAL: Abdomen soft, non-tender, nondistended. No hepato-splenomegaly , or palpable masses. No guarding. G-tube in place without surrounding erythema or purulent drainage. MUSCULOSKELETAL: Extremities without clubbing, cyanosis, or edema. No joint tenderness, effusion, or edema noted. No calf tenderness. NEUROLOGICAL: Awake and alert. Cranial nerves II through XII intact. Motor and sensory grossly within normal limits. Normal speech. Caprini VTE Risk Assessment Caprini VTE Risk Assessment: Mod/High Risk (score >= 2) Caprini Risk Assessment Model Point Value = 1 Point Value = 2 Point Value = 3 Point Value = 5 Age 41-60 Minor surgery BMI > 25 kg/m2 Swollen legs Varicose veins or History of unexplained or recurrent spontaneous Oral contraceptives or hormone replacement Sepsis (< 1 month) Serious lung disease, including pneumonia (< 1 month) Abnormal pulmonary function Acute myocardial infarction Congestive heart failure (< 1 month) History of inflammatory bowel disease Medical patient at bed rest Age 61-74 Arthroscopic surgery Major open surgery (> 45 min) Laparoscopic surgery (> 45 min) Malignancy Confined to bed (> 72 hours) Immobilizing plaster cast Central venous access Age >= 75 History of VTE Family history of VTE Factor V Leiden Prothrombin [id number] Lupus anticoagulant Anticardiolipin antibodies Elevated serum homocysteine Heparin-induced thrombocytopenia Other congenital or acquired thrombophilia Stroke (< 1 month) Elective arthroplasty Hip, pelvis, or leg fracture Acute spinal cord injury (< 1 month) Prophylaxis Regimen Total Risk Factor Score Risk Level Prophylaxis Regimen 0-1 Low Early ambulation 2 Moderate Order ONE of the following: *Sequential Compression Device (SCD) *Heparin 5000 units SQ BID 3-4 Higher Order ONE of the following medications: *Heparin 5000 units SQ TID *Enoxaparin/Lovenox 40 mg SQ daily (WT < 150 kg, CrCl > 30 mL/min) *Enoxaparin/Lovenox 30 mg SQ daily (WT < 150 kg, CrCl > 10-29 mL/min) *Enoxaparin/Lovenox 30 mg SQ BID (WT < 150 kg, CrCl > 30 mL/min) AND/OR *Sequential Compression Device (SCD) 5 or more Highest Order ONE of the following medications: *Heparin 5000 units SQ TID (Preferred with Epidurals) *Enoxaparin/Lovenox 40 mg SQ daily (WT < 150 kg, CrCl > 30 mL/min) *Enoxaparin/Lovenox 30 mg SQ daily (WT < 150 kg, CrCl > 10-29 mL/min) *Enoxaparin/Lovenox 30 mg SQ BID (WT < 150 kg, CrCl > 30 mL/min) AND *Sequential Compression Device (SCD) Assessment and Plan Assessment and Plan Assessment/plan: 1. PEG tube exchange Patient will go to interventional radiology later this morning for PEG tube exchange NPO IVFs Holding home medications until tube can be utilized 2. Lung cancer Patient follows with oncology as outpatient Is preparing to start radiation therapy 3. Dysphasia/Severe malnutrition Chronic Continue outpatient speech therapy Continue tube feeds once PEG exchanged 4. Hypertension/hyperlipidemia/COPD/anxiety Restart home medications once tube is exchanged FEN NPO NS at 70 cc/hr Case discussed with ER physician at length Ivana Koenig MD Apr 30, 2017 05:16
[2017-04-30 08:09] VITALS: BP 144/65; PULSE 81; RESP 16; TEMP 97.5; O2SAT 95
[2017-04-30] MEDS ORDERED: SODIUM CHLORIDE 0.9% FLUSH 10 ML FLUSH IV FLUSH SCH (09:00)
[2017-04-30] MEDS ORDERED: DOCUSATE SODIUM 50 MG/SENNA 8.6 MG TAB PO SCH (09:00)
--- NOTE | 2017-04-30 13:14 | PD.RAD ---
Post Procedure Progress Note Pre Procedure Diagnosis: (1) Malnutrition Post Procedure Diagnosis: (1) Malnutrition Procedure Date: Apr 30, 2017 Supervising Radiologist: Contreras Tucker Proceduralist/Assist: Rocío Nash, RT(R)(CV), Leia Beverly RT(R) Anesthesia: Local, Analgesia Plan of Activity Patient to Unit: Nursing Unit Patient Condition: Good See PACS Report for procedural detail/treatment Feeding Tube Gastrostomy Exchange Contreras Tucker MD Apr 30, 2017 13:14
--- NOTE | 2017-04-30 14:13 | HHI.DS ---
Discharge Summary Admission Date Apr 29, 2017 at 22:02 Discharge Date: Apr 30, 2017 Admitting Diagnosis PEG tube dysfuntion (1) Malnutrition ICD Code: E46 - Unspecified protein-calorie malnutrition Status: Acute (2) PEG tube malfunction ICD Code: K94.23 - Gastrostomy malfunction Status: Acute (3) History of lung cancer ICD Code: Z85.118 - Personal history of other malignant neoplasm of bronchus and lung Status: Acute Procedures PEG replacement Brief History - From Admission 71-year-old female with past medical history significant for lung cancer, hypertension, hyperlipidemia, COPD and chronic dysphasia with G-tube presents to the emergency department for exchange of her PEG tube. The patient reports that the distal end of the tube that connects to the feeds is cracked resulting in leakage. The patient had the PEG tube placed in October of this year for dysphagia and severe malnutrition. She is currently working with speech therapy and is able to take small bites of pured food and sips of some thickened liquids. She receives all of her medications via G-tube. Exchange was attempted in the emergency department, however the physician was unable to remove the patient's current PEG. She will be seen by interventional radiology for PEG tube exchange later today. Hospital Course Mrs. Sharp is a 71 year old female. She came in due to PEG disfunction with inability to acquire caloric intake. PEG is replaced today and she is now back to baseline. Medically stable for resumption of PEG feeds and discharge to home today. Pt Condition on Discharge: Stable Discharge Disposition: Discharge Home Discharge Time: <= 30 minutes Discharge Instructions DIET: Follow Instructions for: On Tube Feeding Activities you can perform: Regular-No Restrictions Follow up Referrals: PCP Follow-up - 2 Weeks Continued Medications: Bupropion HCl ER 24 HR (Wellbutrin Xl 24 HR) 150 Mg Tab 150 MG PO DAILY for Control Depression, TAB 0 Refills Clonazepam (Clonazepam) 1 Mg Tab 1 MG PO HS, #60 TAB 0 Refills Ezetimibe (Zetia) 10 Mg Tab 10 MG PO DAILY, #30 TAB 0 Refills Furosemide (Furosemide) 20 Mg Tab 20 MG PO DAILY, #30 TAB 0 Refills Lorazepam (Lorazepam) 1 Mg Tab 1 MG PO TID for ANXIETY, TAB 0 Refills Metoprolol Tartrate (Metoprolol Tartrate) 25 Mg Tab 25 MG PO BID, #60 TAB 0 Refills Tiotropium Inh (Spiriva Handihaler) 18 Mcg Cap 18 MCG INH DAILY for COPD, #30 CAP 0 Refills 1 capsule = 18 mcg Pelon Lopez MD Apr 30, 2017 14:13
[2017-04-30 14:28] VITALS: BP 158/72; PULSE 92; RESP 18; O2SAT 100
--- NOTE | 2017-05-06 13:09 | RADRPT ---
EXAM DATE/TIME: 04/30/2017 12:55 [place] COMPARISON: No previous studies available for comparison. INDICATIONS : Patient with cracked G-tube in need of exchange. MEDICAL HISTORY : Lung cancer, HTN, HLD, COPD, Dysphasia, Dysphagia SURGICAL HISTORY : Left lung resection, Discectomy, Right hip repair, Cholecystectomy ENCOUNTER: Initial ACUITY: 1 day PAIN SCORE: 0/10 FLUORO TIME: 0.4 minutes IMAGE SERIES: 1 SEDATION TIME: 15 minutes CONTRAST: 10 cc Omnipaque (iohexol) 350 MEDICATION(S): 1.) 100 mcg fentanyl (Sublimaze) IV 2.) 2 mg lorazepam (Ativan) IV DEVICE(S): 1.) 20 [place] gastrostomy tube PROCEDURE : 1. Fluoroscopically guided gastrostomy tube exchange. 2. Conscious sedation with continuous EKG and oximetry monitoring. The risks, benefits and alternatives to the procedure were explained and verbal and written consent w as obtained. The site was prepped in sterile fashion. Full sterile technique was used, including ca p, mask, sterile gloves and gown and a large sterile sheet. Hand hygiene and 2% chlorhexidine and/or betadine/alcohol prep was utilized per protocol for cutaneous antisepsis. The skin and subcutaneous tissues were infiltrated with local anesthetic solution. The existing tube was accessed using sterile technique. The tube was removed over a 0.035 wire. A ne w tube was advanced over the wire and positioned into the stomach without difficulty. The balloon wa s inflated with appropriate volume of saline. Injection of positive contrast demonstrates good posit ion of the gastrostomy tube. Conscious sedation was performed with the prescribed dosages and duration as above in the presence of an independent trained radiology nurse to assist in the monitoring of the patient. EKG and oximetry remained stable throughout the procedure. The patient tolerated the procedure well and there were n o complications. The patient was sent to post anesthesia recovery in stable condition. CONCLUSION: Uncomplicated gastrostomy tube exchange as above. Contreras Tucker MD on May 06, 2017 at 13:08 Board Certified Radiologist. This report was verified electronically.
== END 2017-04-30 15:26 | disposition home or self-care (01) ==
LOC: NEPC 17:21 → NEDA 22:02 → NEPGCP 22:52
PROVIDERS: ADMIT Hospitalist; ATTEND Hospitalist
DX: K94.23 Gastrostomy malfunction (principal); C34.90 Malignant neoplasm of unspecified part of unspecified bronchus or lung; R47.02 Dysphasia; E43 Unspecified severe protein-calorie malnutrition; I10 Essential (primary) hypertension; E78.00 Pure hypercholesterolemia, unspecified; J44.9 Chronic obstructive pulmonary disease, unspecified; F41.9 Anxiety disorder, unspecified; Z92.21 Personal history of antineoplastic chemotherapy; Z90.2 Acquired absence of lung [part of]; Z87.891 Personal history of nicotine dependence; Z79.899 Other long term (current) drug therapy
CPT/HCPCS: 49450; 96361; 96374; 96375; 96376; 99285; C1769; G0378; J2060; J2405; J3010; J7030; Q9967

== ENCOUNTER → 2017-09-28 | Outpatient (CLI) | payer MEDICARE, OTHER ==
[~2017-09-28] MED LIST changes: -AMIT25TA9 PO; -BENI40TA29 PO; -BUPR150XL PO; -CALTCHW5 PO; +CHLORHEXIDINE GLUCONATE 2 % 1 PACK (2 CLOTHS) TOPICAL; -DENO60P SQ; -EZET10 PO; -FLUT1INH INH; -JEVILIQ12 PEG; -KANGAROO JOEY P1 MIS; -LORA1TAB12 PO; -METO25TA3 PO; +METOPROLOL TARTRATE 25 MG TAB PO; -NORC5TAB PO; -NYST1000 SWISH-SPIT; -OXYGENDME NAS.CANULA; +POVIDONE IODINE 5% (ANTISEPSIS KIT) 4 APPLICATIONS EACH NARE; -PRED10 PO; +PROPOFOL 200 MG/20 ML AMP IV; +SODIUM CHLORID 0.9% 500 ML IV; -SPIRCAP INH
[2017-09-28] MEDS: LACTATED RINGER'S 1000 ML IV (10:27)
== END ==
LOC: HEND 08:24
DX: R13.10 Dysphagia, unspecified (principal); Z01.810 Encounter for preprocedural cardiovascular examination
CPT/HCPCS: 00731; 93005